=== PATIENT | female | born 1965 | race Caucasian/White ===

== ENCOUNTER → 2022-03-23 | Outpatient (CLI) | payer OTHER ==
[~2022-03-23] MED LIST: ADULT LOW DOSE81 MG PO; BIOTIN PO; CRANBERRY PO; HORMONE CREAM TOP; KRILL OIL 1,001 EACH PO; LINZESS72 MCG PO; PROGESTERONE100 MG PO; VITAMIN B12 INJ; VITAMIN B12 SL; [UNRECOGNIZED DRUG - CODE] PO
[2022-03-23 10:09] LABS: HEMOGLOBIN 14.6 gm/dl (12.3-15.3); RED BLOOD COUNT 4.98 M/UL (4.00-5.10)
== END ==
LOC: OPSV2 08:00
PROVIDERS: Obstetrics & Gynecology
DX: Z01.818 Encounter for other preprocedural examination (principal); R10.32 Left lower quadrant pain; R94.31 Abnormal electrocardiogram [ECG] [EKG]; Z88.2 Allergy status to sulfonamides
CPT/HCPCS: 36415; 71046; 81001; 85025; 93005

== ENCOUNTER → 2022-03-30 | Day surgery (SDC) | payer OTHER ==
[~2022-03-30] MED LIST changes: +HYDROCODON-ACE1 EAC4 PO; +IBU600 MG PO
== END | disposition home or self-care (01) ==
LOC: OR 05:27
DX: R10.32 Left lower quadrant pain (principal); N73.6 Female pelvic peritoneal adhesions (postinfective); T81.500A Unspecified complication of foreign body accidentally left in body following surgical operation, initial encounter; E78.5 Hyperlipidemia, unspecified; Z88.2 Allergy status to sulfonamides; Z79.82 Long term (current) use of aspirin; Z79.899 Other long term (current) drug therapy
CPT/HCPCS: 84703; J1100; J1885; J2001; J2250; J2405; J2704; J2795; J3010